=== PATIENT | female | born 1955 | race African-American/Black ===

== ENCOUNTER 2016-11-19 10:29 | Emergency (ER) | payer SELFPAY ==
[~2016-11-19] VITALS: Ht 154.9 cm; Wt 95.3 kg
[~2016-11-19 10:29] MED LIST: AMLO10TA2 PO; ATEN1TAB4 PO; LEVO150T PO; SULF1TAB24 PO; TELM1TAB PO
[2016-11-19 10:45] VITALS: BP 168/119
--- NOTE | 2016-11-19 11:14 | PHYS DOC ---
Past Medical History Past Medical History: Hypertension, Hypothyroid Additional Past Medical Histor: sciatica, CHRONIC MIGRAINE Past Surgical History: Hysterectomy, Tubal ligation Additional Past Surgical Histo: THYROID REMOVED Alcohol Use: None Drug Use: None Adult General Chief Complaint Chief Complaint: ANKLE PROBLEM HPI HPI Patient is a 61 year old female presents to the emergency department with a history of missing the last step yesterday. Patient states she is having pain in the right foot. She has taken excedrin for the pain with minimal relief. Patient denies numbness, tingling to the foot. Patient has been able to ambulate with limping noted. Review of Systems Review of Systems Constitutional: Denies fever or chills [] Eyes: Denies change in visual acuity, redness, or eye pain [] HENT: Denies nasal congestion or sore throat [] Respiratory: Denies cough or shortness of breath [] Cardiovascular: No additional information not addressed in HPI [] GI: Denies abdominal pain, nausea, vomiting, bloody stools or diarrhea [] : Denies dysuria or hematuria [] Musculoskeletal: Denies back pain. right foot pain Integument: Denies rash or skin lesions [] Neurologic: Denies headache, focal weakness or sensory changes [] Endocrine: Denies polyuria or polydipsia [] Current Medications Current Medications Current Medications Medications (Trade) Dose Ordered Sig/Bella Start Time Stop Time Status Last Admin Dose Admin Ibuprofen (Motrin) 800 mg 1X ONCE 11/19/16 11:15 11/19/16 11:16 DC 11/19/16 11:31 800 MG Allergies Allergies Allergies Coded Allergies Type Severity Reaction Last Updated Verified acetaminophen Allergy Intermediate 12/25/14 Yes propoxyphene Allergy Intermediate 12/25/14 Yes Physical Exam Physical Exam Constitutional: Well developed, well nourished, no acute distress, non-toxic appearance. [] HENT: Normocephalic, atraumatic, bilateral external ears normal, oropharynx moist, no oral exudates, nose normal. [] Eyes: PERRLA, EOMI, conjunctiva normal, no discharge. [] Neck: Normal range of motion, no tenderness, supple, no stridor. [] Cardiovascular:Heart rate regular rhythm, no murmur [] Lungs & Thorax: Bilateral breath sounds clear to auscultation [] Skin: Warm, dry, no erythema, no rash. [] Back: No tenderness Extremities: Right foot tenderness, no cyanosis, no clubbing, ROM intact, no edema. No discoloration noted, no bruising noted, + swelling noted. Peripheral pulses 2+ cap refill brisk < 2 seconds. Neurologic: Alert and oriented X 3, normal motor function, normal sensory function, no focal deficits noted. [] Psychologic: Affect normal, judgement normal, mood normal. [] Current Patient Data Vital Signs Vital Signs Date Time Temp Pulse Resp B/P (MAP) Pulse Ox O2 Delivery O2 Flow Rate FiO2 11/19/16 10:45 98.3 51 18 100 Room Air 98.3 EKG EKG [] Radiology/Procedures Radiology/Procedures [facility] [address] [place] [address] IMAGING REPORT Signed PATIENT: ZULLY JEFF ACCOUNT: [id number] : 1955 LOCATION: ER AGE: 61 SEX: F EXAM STATUS: REG ER ORD. PHYSICIAN: CHAPITO AMANDA APRN REASON: pain and discomfort PROCEDURE: FOOT RIGHT 3V Indication pain and swelling associated with an injury one day earlier. AP oblique and lateral views of the right foot were obtained. No bony abnormality is seen DICTATED and SIGNED BY: ELIDA CHILDRESS MD DATE: 11/19/16 1157 CC: CHAPITO AMANDA APRN; NON,STAFF; UNKNOWN PCP NAME ~ [] Course & Med Decision Making Course & Med Decision Making Pertinent Labs and Imaging studies reviewed. (See chart for details) X-ray of the right that was negative per radiology. X-ray of the right ankle was negative per Dr. Gracia. Patient will be placed in Baron wrap with a postop shoe. Recommended ice packs elevation as much as possible. Tylenol or ibuprofen for pain and discomfort. Patient does state she is able to take Tylenol. Patient will be discharged home in stable condition recommended following up with orthopedic in the next week. Patient agree with discharge instructions treatment regimens and follow-up recommendations. [] Dragon Disclaimer Dragon Disclaimer This electronic medical record was generated, in whole or in part, using a voice recognition dictation system. Departure Departure Impression: Primary Impression: Right foot pain Disposition: HOME, SELF-CARE Condition: STABLE Referrals: UNKNOWN PCP NAME (PCP) LIZZETTE JAMES MD Patient Instructions: Foot Contusion, [id number] Additional Instructions: X-rays were negative for any bony abnormalities. Baron wrap on for the next 5-7 days. Ice packs on 20 minutes off 20 minutes several times a day. Elevation as much as possible. Tylenol or ibuprofen for pain and discomfort. Follow-up with orthopedic in the next week. Return back to emergency prior signs and symptoms of become worse. CHAPITO AMANDA APRN Nov 19, 2016 11:14
[2016-11-19] MEDS ORDERED: IBUPROFEN 800 MG TABLET. PO ONE (11:15)
--- NOTE | 2016-11-19 12:05 | RAD ---
Indication pain and swelling associated with an injury one day earlier. AP oblique and lateral views of the right foot were obtained. No bony abnormality is seen
--- NOTE | 2016-11-19 12:31 | RAD ---
EXAM: Right ankle 3 views. HISTORY: Right ankle pain and swelling COMPARISON: None. FINDINGS: There is thickening along the Achilles tendon stripe 3 cm proximal to its insertion, with some opacification of Kager's fat pad. There is some ossification at the Achilles tendon insertion. No fractures are identified. Alignment is normal. Joint spaces are maintained. There is a small plantar calcaneal spur. IMPRESSION: 1. Correlate for Achilles tendon rupture/injury. 2. No fracture.
== END 2016-11-19 12:33 | disposition home or self-care (01) ==
LOC: ER 10:29
DX: M79.671 Pain in right foot (principal); I10 Essential (primary) hypertension; G43.909 Migraine, unspecified, not intractable, without status migrainosus; E89.0 Postprocedural hypothyroidism; Z90.710 Acquired absence of both cervix and uterus; Z88.8 Allergy status to other drugs, medicaments and biological substances; Z88.6 Allergy status to analgesic agent
CPT/HCPCS: 73610; 73630; 99284

== ENCOUNTER 2017-03-18 13:16 | Emergency (ER) | payer SELFPAY ==
[~2017-03-18] VITALS: Ht 154.9 cm; Wt 96.6 kg
[2017-03-18 14:15] VITALS: BP 163/82
--- NOTE | 2017-03-18 14:40 | PHYS DOC ---
Past Medical History Past Medical History: Hypertension, Hypothyroid, Other Additional Past Medical Histor: sciatica, CHRONIC MIGRAINE Past Surgical History: Hysterectomy, Tubal ligation, Other Additional Past Surgical Histo: THYROID REMOVED Alcohol Use: None Drug Use: None Adult General Chief Complaint Chief Complaint: ABSCESS HPI HPI Patient is a 62 year old female presents to the emergency department stating that she has a lump underneath her chin. She states that she's had this for a few days and seems to be getting bigger. She denies any fever, chills or any nausea vomiting she denies any difficulty with talking she does state she has started to have some difficulty with swallowing but no difficulty breathing. Review of Systems Review of Systems Constitutional: Denies fever or chills [] Eyes: Denies change in visual acuity, redness, or eye pain [] HENT: Denies nasal congestion or sore throat [] Respiratory: Denies cough or shortness of breath [] Cardiovascular: No additional information not addressed in HPI [] GI: Denies abdominal pain, nausea, vomiting, bloody stools or diarrhea [] : Denies dysuria or hematuria [] Musculoskeletal: Denies back pain or joint pain [] Integument: Denies rash or skin lesions. C/o lump under the chin Neurologic: Denies headache, focal weakness or sensory changes [] Endocrine: Denies polyuria or polydipsia [] All other systems were reviewed and found to be within normal limits, except as documented in this note. Current Medications Current Medications Current Medications Medications (Trade) Dose Ordered Sig/Bella Start Time Stop Time Status Last Admin Dose Admin Ibuprofen (Motrin) 600 mg 1X ONCE 03/18/17 14:45 03/18/17 14:46 DC 03/18/17 15:25 600 MG Allergies Allergies Allergies Coded Allergies Type Severity Reaction Last Updated Verified acetaminophen Allergy Intermediate 12/25/14 Yes propoxyphene Allergy Intermediate 12/25/14 Yes Physical Exam Physical Exam Constitutional: Well developed, well nourished, no acute distress, non-toxic appearance. [] HENT: Normocephalic, atraumatic, bilateral external ears normal, oropharynx moist, no oral exudates, nose normal. Tympanic membranes appear to be normal. Throat with no erythematous or redness or exudate noted. No anterior cervical adenopathy noted. Patient did have swelling noted just for the chin and the neck region the size of a golf ball while the area appears to be very soft and movable. It is tender to touch. Eyes: PERRLA, EOMI, conjunctiva normal, no discharge. [] Neck: Normal range of motion, no tenderness, supple, no stridor. [] Cardiovascular:Heart rate regular rhythm, no murmur [] Lungs & Thorax: Bilateral breath sounds clear to auscultation [] Skin: Warm, dry, no erythema, no rash. [] Extremities: No tenderness, no cyanosis, no clubbing, ROM intact, no edema. [] Neurologic: Alert and oriented X 3, normal motor function, normal sensory function, no focal deficits noted. [] Psychologic: Affect normal, judgement normal, mood normal. [] Current Patient Data Vital Signs Vital Signs Date Time Temp Pulse Resp B/P (MAP) Pulse Ox O2 Delivery O2 Flow Rate FiO2 03/18/17 14:15 98.0 77 16 98 Room Air 98.0 EKG EKG [] Radiology/Procedures Radiology/Procedures [facility] [address] [place] [address] IMAGING REPORT Signed PATIENT: ZULLY JEFF ACCOUNT: [id number] : 1955 LOCATION: ER AGE: 62 SEX: F EXAM STATUS: REG ER ORD. PHYSICIAN: CHAPITO AMANDA APRN REASON: nodule throat area, tender and red PROCEDURE: EXT NON VASC RIGHT Nonvascular right extremity Limited 03/18/2017 Clinical indication: Nodule at the throat area, tenderness and red. Comparison: None. Findings: There is a normal size morphologically abnormal round hypoechoic lymph node in the area of palpable interest anterior neck, beneath the mandible measuring 0.9 x 0.8 x 0.8 cm with effacement of the normal fatty hilum. There are multiple additional scattered round hypoechoic lymph nodes are subcentimeter in size. Impression: In the area of palpable concern beneath the mandible, morphologically abnormal round lymph node measuring up to 0.9 cm with additional similar-appearing smaller cervical lymph nodes. Findings are indeterminate between reactive and cesario metastatic disease. Follow-up CT neck with contrast is recommended for further evaluation. DICTATED and SIGNED BY: SELENE MACARIO MD DATE: 03/18/17 1528 CC: CHAPITO AMANDA APRN; NON,STAFF; UNKNOWN PCP NAME ~ [] Course & Med Decision Making Course & Med Decision Making Pertinent Labs and Imaging studies reviewed. (See chart for details) Patient was provided with ultrasound results. She was recommended to follow up with or [facility]. Patient was instructed to use Tylenol or ibuprofen for pain and discomfort. She was instructed to call 911 if she should have any difficulty swallowing or any shortness of her difficulty breathing. I've spoken with the patient and/or caregivers. I've explained the patient's condition, diagnosis and treatment plan based on information available to me at this time. I've answered the patient's and/or caregivers questions and addressed any concerns. The patient and/or caregivers have a good understanding the patient's diagnosis, condition and treatment plan as can be expected at this point. Vital signs have been stabilized. The patient's condition is stable for discharge from the emergency department. The patient will pursue further outpatient evaluation with her primary care provider or other designated consulting physician as outlined in the discharge instructions. Patient and/or caregivers are agreeable to this plan of care and follow-up instructions have been explained in detail. The patient and/or caregivers have received these instructions in written format and expressed understanding of these discharge instructions. The patient and her caregivers are aware that if any significant change in condition or worsening of symptoms should prompt him to immediately return to this of the closest emergency department. If an emergent department is not readily available I would encourage him to call 911. [] Dragon Disclaimer Dragon Disclaimer This electronic medical record was generated, in whole or in part, using a voice recognition dictation system. Departure Departure Impression: Primary Impression: Neck nodule Disposition: HOME, SELF-CARE Condition: STABLE Referrals: UNKNOWN PCP NAME (PCP) Patient Instructions: Lymphangitis, Pediatric Additional Instructions: Your ultrasound identified a nodule in the throat area Tylenol or Ibuprofen for pain and discomfort Followup with ENT with or [facility] Return to emergency department as needed for signs and symptoms that become worse. CHAPITO AMANDA APRN Mar 18, 2017 14:40
[2017-03-18] MEDS ORDERED: IBUPROFEN 600 MG TABLET. PO ONE (14:45)
--- NOTE | 2017-03-18 15:36 | RAD ---
Nonvascular right extremity Limited 03/18/2017 Clinical indication: Nodule at the throat area, tenderness and red. Comparison: None. Findings: There is a normal size morphologically abnormal round hypoechoic lymph node in the area of palpable interest anterior neck, beneath the mandible measuring 0.9 x 0.8 x 0.8 cm with effacement of the normal fatty hilum. There are multiple additional scattered round hypoechoic lymph nodes are subcentimeter in size. Impression: In the area of palpable concern beneath the mandible, morphologically abnormal round lymph node measuring up to 0.9 cm with additional similar-appearing smaller cervical lymph nodes. Findings are indeterminate between reactive and cesario metastatic disease. Follow-up CT neck with contrast is recommended for further evaluation.
== END 2017-03-18 16:00 | disposition home or self-care (01) ==
LOC: ER 13:16
DX: R22.1 Localized swelling, mass and lump, neck (principal); I10 Essential (primary) hypertension; E03.9 Hypothyroidism, unspecified; G43.909 Migraine, unspecified, not intractable, without status migrainosus; Z88.6 Allergy status to analgesic agent; Z88.8 Allergy status to other drugs, medicaments and biological substances
CPT/HCPCS: 76881; 99284-25

== ENCOUNTER 2017-10-12 14:36 | Emergency (ER) | payer SELFPAY ==
[2017-10-12] MEDS: KETOROLAC 30 MG/ML INJ. IV (15:00)
[2017-10-12] MEDS: IV NORMAL SALINE 1000ML BAG 1,000 ML IV (15:00)
[2017-10-12] MEDS: ONDANSETRON PF 4 MG/2 ML VIAL. IV (15:00)
[2017-10-12 15:11] LABS: ADD MAN DIFF? NO
[2017-10-12 15:16] LABS: BASO # 0.1 x10^3/uL (0.0-0.2); BASO % 1 % (0-3); EOS # 0.4 x10^3/uL (0.0-0.7); EOS % 6 % (0-3); HEMATOCRIT 38.1 % (36.0-47.0); LYMPH # 2.6 x10^3/uL (1.0-4.8); LYMPH % 37 % (24-48); MEAN CORPUSCULAR HEMOGLOBIN 31 pg (25-35); MEAN CORPUSCULAR HGB CONC 34 g/dL (31-37); MEAN CORPUSCULAR VOLUME 90 fL (79-100); MONO # 0.5 x10^3/uL (0.0-1.1); MONO % 8 % (0-9); NEUT # 3.3 x10^3uL (1.8-7.7); NEUT % 48 % (31-73); PLATELET COUNT 364 x10^3/uL (140-400); RED BLOOD COUNT 4.25 x10^6/uL (3.50-5.40); RED CELL DISTRIBUTION WIDTH 14.6 % (11.5-14.5); WHITE BLOOD COUNT 6.8 x10^3/uL (4.0-11.0)
[2017-10-12 15:17] LABS: BILIRUBIN,URINE NEGATIVE (NEG); CLARITY,URINE CLEAR; COLOR,URINE YELLOW; GLUCOSE,URINE NEGATIVE (NEG); NITRITE,URINE NEGATIVE (NEG); PROTEIN,URINE NEGATIVE (NEG-TRACE); UROBILINOGEN,URINE 0.2 mg/dL (0.2 mg/dL)
[2017-10-12 15:19] LABS: ANION GAP 8 (6-14); BLOOD UREA NITROGEN 10 mg/dL (7-20); BUN/CREATININE RATIO 9 (6-20); CARBON DIOXIDE 30 mmol/L (21-32); CHLORIDE 102 mmol/L (98-107); CREATININE 1.1 mg/dL (0.6-1.0); GFR 60.9; GLUCOSE 116 mg/dL (70-99); POTASSIUM 3.3 mmol/L (3.5-5.1); SODIUM 140 mmol/L (136-145)
[2017-10-12 15:25] LABS: ALBUMIN 3.8 g/dL (3.4-5.0); ALBUMIN/GLOBULIN RATIO 0.9 (1.0-1.7); ALK PHOS 93 U/L (46-116); ALT (SGPT) 27 U/L (14-59); AST (SGOT) 27 U/L (15-37); LIPASE 370 U/L (73-393); TOTAL BILIRUBIN 0.3 mg/dL (0.2-1.0)
[2017-10-12 15:57] LABS: BACTERIA,URINE 0 /HPF (0-FEW); RBC,URINE 0 /HPF (0-2); SQUAMOUS EPITHELIAL CELL,UR OCC /LPF; WBC,URINE OCC /HPF (0-4)
[2017-10-12] MEDS: POTASSIUM CHLORIDE 20 MEQ TABLET.ER. PO (15:59)
== END 2017-10-12 16:18 | disposition home or self-care (01) ==
LOC: ER 14:36
DX: R19.7 Diarrhea, unspecified (principal); R10.84 Generalized abdominal pain; E03.9 Hypothyroidism, unspecified; I10 Essential (primary) hypertension; E11.9 Type 2 diabetes mellitus without complications; G43.909 Migraine, unspecified, not intractable, without status migrainosus; Z90.710 Acquired absence of both cervix and uterus; Z98.51 Tubal ligation status; Z88.6 Allergy status to analgesic agent; Z88.8 Allergy status to other drugs, medicaments and biological substances
CPT/HCPCS: 36415; 74176; 80053; 81001; 83690; 85025; 96361; 96374; 96375; 99285-25; J1885; J2405; J7030

== ENCOUNTER 2018-05-08 12:00 | Emergency (ER) | payer OTHER ==
[~2018-05-08] VITALS: Ht 154.9 cm; Wt 88.5 kg
[~2018-05-08 12:00] MED LIST changes: -AMLO10TA2 PO; +AMLO10TA6 PO; +AMOX1TAB61 PO; +METR500T PO; +ONDA4TAB10 SL
[2018-05-08 12:31] VITALS: BP 133/69
[2018-05-08] MEDS ORDERED: DOXY100C2 PO (12:37)
--- NOTE | 2018-05-08 12:40 | PHYS DOC ---
Past Medical History Past Medical History: Diabetes-Type II, Hypertension, Hypothyroid, Other Additional Past Medical Histor: sciatica, CHRONIC MIGRAINE Past Surgical History: Hysterectomy, Tubal ligation, Other Additional Past Surgical Histo: THYROID REMOVED Alcohol Use: None Drug Use: None Adult General Chief Complaint Chief Complaint: ABSCESS HPI HPI Patient is a 63 year old [f__sex] who presents with [] Review of Systems Review of Systems Constitutional: Denies fever or chills [] Eyes: Denies change in visual acuity, redness, or eye pain [] HENT: Denies nasal congestion or sore throat [] Respiratory: Denies cough or shortness of breath [] Cardiovascular: No additional information not addressed in HPI [] GI: Denies abdominal pain, nausea, vomiting, bloody stools or diarrhea [] : Denies dysuria or hematuria [] Musculoskeletal: Denies back pain or joint pain [] Integument: Denies rash or skin lesions [] Neurologic: Denies headache, focal weakness or sensory changes [] Endocrine: Denies polyuria or polydipsia [] All other systems were reviewed and found to be within normal limits, except as documented in this note. Allergies Allergies Allergies Coded Allergies Type Severity Reaction Last Updated Verified acetaminophen Allergy Intermediate 12/25/14 Yes propoxyphene Allergy Intermediate 12/25/14 Yes Physical Exam Physical Exam Constitutional: Well developed, well nourished, no acute distress, non-toxic appearance. [] HENT: Normocephalic, atraumatic, bilateral external ears normal, oropharynx moist, no oral exudates, nose normal. [] Eyes: PERRLA, EOMI, conjunctiva normal, no discharge. [] Neck: Normal range of motion, no tenderness, supple, no stridor. [] Cardiovascular:Heart rate regular rhythm, no murmur [] Lungs & Thorax: Bilateral breath sounds clear to auscultation [] Abdomen: Bowel sounds normal, soft, no tenderness, no masses, no pulsatile masses. [] Skin: Warm, dry, no erythema, no rash. [] Back: No tenderness, no CVA tenderness. [] Extremities: No tenderness, no cyanosis, no clubbing, ROM intact, no edema. [] Neurologic: Alert and oriented X 3, normal motor function, normal sensory function, no focal deficits noted. [] Psychologic: Affect normal, judgement normal, mood normal. [] EKG EKG [] Radiology/Procedures Radiology/Procedures [] Course & Med Decision Making Course & Med Decision Making Pertinent Labs and Imaging studies reviewed. (See chart for details) [] Dragon Disclaimer Dragon Disclaimer This electronic medical record was generated, in whole or in part, using a voice recognition dictation system. Departure Departure Impression: Primary Impression: Abscess Disposition: 01 HOME, SELF-CARE Condition: STABLE Referrals: UNKNOWN PCP NAME (PCP) Patient Instructions: Abscess Additional Instructions: Take the medication as prescribed. Use ibuprofen for pain. Follow-up with your primary care provider in 4 days if not improving or return to the emergency department if worsening. Scripts Doxycycline Hyclate (DOXYCYCLINE HYCLATE) 100 Mg Capsule 1 CAP PO BID for abscess, #20 CAP Prov: PAULINA HICKS APRN 05/08/18 PAULINA HICKS APRN May 08, 2018 12:40
[2018-05-08] MEDS ORDERED: IBUPROFEN 400 MG TABLET. PO ONE (12:45)
== END 2018-05-08 12:55 | disposition home or self-care (01) ==
LOC: ER 12:00
DX: L02.01 Cutaneous abscess of face (principal); E11.9 Type 2 diabetes mellitus without complications; I10 Essential (primary) hypertension; E03.9 Hypothyroidism, unspecified; Z90.710 Acquired absence of both cervix and uterus
CPT/HCPCS: 99283

== ENCOUNTER 2019-12-17 11:20 | Emergency (ER) | payer SELFPAY ==
[~2019-12-17] VITALS: Ht 154.9 cm; Wt 95.0 kg
[~2019-12-17 11:20] MED LIST changes: -AMLO10TA6 PO; +AMLO10TA8 PO; +DOXY100C2 PO
[2019-12-17 11:28] VITALS: BP 152/4
--- NOTE | 2019-12-17 12:32 | RAD ---
Left ankle 3 views: Reason for examination: Posterior left ankle pain for 3 weeks after twisting injury. No acute fracture or dislocation is seen. The bone density is normal. No abnormal periosteal reaction is seen. Joint spaces are maintained. There is a small plantar spur on the calcaneus. There is some mild soft tissue swelling over the medial malleolus. IMPRESSION: Mild soft tissue swelling over the medial malleolus. No acute fracture or dislocation evident. Electronically signed by: Chelsea Biggs MD (12/17/2019 12:29 PM) KARENA
[2019-12-17] MEDS ORDERED: NAPR-514 PO (13:09)
--- NOTE | 2019-12-17 13:15 | PHYS DOC ---
Past Medical History Past Medical History: Diabetes-Type II, Hypertension, Hypothyroid, Migraines, Other Additional Past Medical Histor: SCIATICA, GOUT, SPINAL STENOSIS, BULGING DISC Past Surgical History: Hysterectomy, Tubal ligation, Other Additional Past Surgical Histo: THYROID Smoking Status: Never Smoker Alcohol Use: None Drug Use: None General Adult EDM: Chief Complaint: LOWER EXT PAIN HPI: HPI: Patient is a 64 year old AA female who presents to the emergency department with complaints of pain, swelling, redness, and warmth of her left posterior ankle for last 3 weeks. Patient reports history of gout but states that she takes allopurinol daily to prevent attacks. She reports that 3 weeks ago she did twist her ankle but has not had any imaging of it. She reports difficulty with lateral movement. She denies any difficulty with flexion and extension of the foot. She denies any fever, drainage, numbness, tingling, or weakness of the affected extremity. She currently rates the pain a 7 out of 10 on the pain scale, she denies any alleviating factors. She denies any radiation of the pain. Review of Systems: Review of Systems: Constitutional: Denies fever or chills. [] Musculoskeletal: See HPI Integument: See HPI Neurologic: Denies headache, focal weakness or sensory changes. [] Psychiatric: Denies depression or anxiety. [] Heart Score: Risk Factors: Risk Factors: DM, Current or recent (<one month) smoker, HTN, HLP, family history of CAD, obesity. Risk Scores: Score 0 - 3: 2.5% MACE over next 6 weeks - Discharge Home Score 4 - 6: 20.3% MACE over next 6 weeks - Admit for Clinical Observation Score 7 - 10: 72.7% MACE over next 6 weeks - Early Invasive Strategies Allergies: Allergies: Allergies Coded Allergies Type Severity Reaction Last Updated Verified propoxyphene Allergy Intermediate 12/25/14 Yes Physical Exam: PE: Constitutional: Well developed, well nourished, no acute distress, non-toxic appearance. [] HENT: Normocephalic, atraumatic, bilateral external ears normal, nose normal. [] Eyes: PERRLA, EOMI, conjunctiva normal, no discharge. [] Neck: Normal range of motion, no stridor. [] Cardiovascular:Heart rate regular rhythm Lungs & Thorax: Respirations even and unlabored, no retractions, no respiratory distress Skin: Warm, dry; erythema and warmth of posterior left ankle without fluctuance or visible pustule Extremities: Left posterior ankle: Tenderness to palpation, limited lateral mobility, full extension and flexion of the left ankle, 1+ edema, no obvious def ormity, no crepitus. No cyanosis Neurologic: Alert and oriented X 3, no focal deficits noted. [] Psychologic: Affect normal, judgement normal, mood normal. [] Current Patient Data: Vital Signs: Vital Signs Date Time Temp Pulse Resp B/P (MAP) Pulse Ox O2 Delivery O2 Flow Rate FiO2 12/17/19 11:28 98.1 62 18 152/4 (53) 98 Room Air 98.1 EKG: EKG: [] Radiology/Procedures: Radiology/Procedures: PROCEDURE: ANKLE LEFT 3V Left ankle 3 views: Reason for examination: Posterior left ankle pain for 3 weeks after twisting injury. No acute fracture or dislocation is seen. The bone density is normal. No abnormal periosteal reaction is seen. Joint spaces are maintained. There is a small plantar spur on the calcaneus. There is some mild soft tissue swelling over the medial malleolus. IMPRESSION: Mild soft tissue swelling over the medial malleolus. No acute fracture or dislocation evident.[] Course & Med Decision Making: Course & Med Decision Making Pertinent Labs and Imaging studies reviewed. (See chart for details) [id number] spoke with Dr. Wan and advised of the patient in the emergency department. I discussed the patient's physical exam and x-ray findings with him. I will prescribe patient naproxen and provide patient with a cam walker boot. We will also have the patient follow-up in his office this next week. Prescription written for naproxen. Patient encouraged to follow-up with Dr. Wan's office this week. Patient verbalized an understanding of home care, medications, follow-up, and return to ED instructions and was in agreement with the plan of care. [] Dragon Disclaimer: Dragon Disclaimer: This electronic medical record was generated, in whole or in part, using a voice recognition dictation system. Departure Departure Impression: Primary Impression: Left Achilles tendinitis Disposition: 01 HOME, SELF-CARE Condition: STABLE Referrals: LIZZETTE BLACK MD Patient Instructions: Achilles Tendinitis Additional Instructions: Fill prescription(s) and use as directed. Recommend application of ice, elevation, and rest of affected extremity. Wear the ortho boot provided until follow-up with Dr. Black's office this week, return to the ER if your symptoms worsen. Scripts Naproxen (NAPROXEN) 500 Mg Tablet 1 TAB PO BID PRN for PAIN for 10 Days, #20 TAB 0 Refills Prov: EZE SCHWAB APRN 12/17/19 Justicifation of Admission Dx: Justifications for Admission: Justification of Admission Dx: N/A Splinting Splinting : Location: left lower leg Pre-Made Type: CAM walker boot Pre-Proc Neuro Vasc Exam: normal Post-Proc Neuro Vasc Exam: normal, unchanged from pre-exam EZE SCHWAB APRN Dec 17, 2019 13:15
== END 2019-12-17 14:05 | disposition home or self-care (01) ==
LOC: ER 11:20
DX: M76.62 Achilles tendinitis, left leg (principal); R60.0 Localized edema; L53.9 Erythematous condition, unspecified; E11.9 Type 2 diabetes mellitus without complications; I10 Essential (primary) hypertension; E03.9 Hypothyroidism, unspecified; G43.909 Migraine, unspecified, not intractable, without status migrainosus; Z90.710 Acquired absence of both cervix and uterus; Z98.51 Tubal ligation status; Z98.890 Other specified postprocedural states
CPT/HCPCS: 73610; 99284